=== PATIENT | male | born 1975 | race Caucasian/White ===

== ENCOUNTER 2019-07-02 13:57 | Emergency (ER) | payer BC ==
[2019-07-02] MEDS ORDERED: NA CHLORIDE 0.9% 1,000 ML ONE (15:14)
[2019-07-02 15:25] LABS: Absolute Lymphocytes (CBC) 0.9 K/uL (0.7-4.9); Basophils % 0.7 % (0-1.3); Hematocrit 42.2 % (39.6-49.0); Lymphocytes % 21.4 % (15.3-44.8); MPV 9.6 fL (7.6-11.3); RBC Red Blood Cell Count 4.84 M/uL (4.33-5.43)
[2019-07-02 15:30] LABS: Protime INR 1.15; Urine Blood NEGATIVE (NEG); Urine Glucose NEGATIVE (NEG); Urine Protein NEGATIVE (NEG); Urine Specific Gravity 1.025 (1.005-1.030); Urine pH 5.5 (5.0-7.0)
[2019-07-02 15:30] LABS: Urine Bacteria <20 /HPF (NONE SEEN); Urine Culture Reflex Order NOT NEEDED; Urine Mucus 1+ /HPF (NONE SEEN); Urine RBC <5 /HPF (NONE SEEN)
[2019-07-02 15:38] LABS: ALT/SGPT 103 U/L (12-78); AST/SGOT 69 U/L (15-37); Albumin 3.7 g/dL (3.4-5.0); Alkaline Phosphatase 113 U/L (45-117); BUN Blood Urea Nitrogen 24 mg/dL (7-18); Bicarbonate 28 mmol/L (21-32); Bilirubin Direct 0.1 mg/dL (0-0.2); Bilirubin Total 0.5 mg/dL (0.2-1.0); CKMB Creatine Kinase MB < 1.0 ng/mL (0.3-3.6); Creatine Phosphokinase 105 U/L (39-308); Glucose Level 99 mg/dL (74-106); Lipase 46 U/L (73-393); Potassium 4.3 mmol/L (3.5-5.1); Protein, Total 8.6 g/dL (6.4-8.2); Sodium Level 134 mmol/L (136-145); Troponin (Emerg Dept Use Only) < 0.02 ng/mL (0.0-0.045)
[2019-07-02] MEDS ORDERED: ONDANSETRON 4 MG/2 ML VIAL ONE (16:11)
[2019-07-02] MEDS ORDERED: MORPHINE 4 MG/ML SYR ONE ×2 (16:11→18:06)
--- NOTE | 2019-07-02 16:20 | RAD REPORT ---
EXAM DESCRIPTION: CT - Chest Angio - 07/02/2019 4:05 pm CLINICAL HISTORY: Shortness of breath COMPARISON: None. TECHNIQUE: Dynamically enhanced axial 3 mm thick images of the chest were obtained during administra tion of <100> mL Isovue 370 IV contrast. Coronal and oblique reconstruction images were generated and reviewed. Exam utilizes a protocol for optimal evaluation of pulmonary arterial tree. 3D MIPS recons truction performed All CT scans are performed using dose optimization technique as appropriate and may include automated exposure control or mA/KV adjustment according to patient size. FINDINGS: The opacification of the pulmonary arteries is suboptimal. A pulmonary embolus is not seen . The ascending thoracic aorta is ectatic measuring 3.9 centimeters. A pleural effusion is not seen. A pericardial effusion is not noted. A lung consolidation is not present. Paraseptal emphysema is present. Fatty liver IMPRESSION: Negative for a pulmonary embolism.
--- NOTE | 2019-07-02 16:27 | RAD REPORT ---
EXAM DESCRIPTION: CTSpine Lumbar W/Cont07/02/2019 4:04 pm CLINICAL HISTORY: Back pain and radiculopathy COMPARISON: None TECHNIQUE: Computed axial tomography lumbar spine was obtained with coronal and sagittal reconstruct ion. Isovue 370 is administered intravenously All CT scans are performed using dose optimization technique as appropriate and may include automated exposure control or mA/KV adjustment according to patient size. FINDINGS: Left camilo laminectomy involves L4-5. Large left posterolateral structure is present. Ill-d efined fluid is present within the posterior subcutaneous tissues. Small right posterolateral disc bulge/ herniation L5-S1 No fracture is seen. IMPRESSION: Left hemilaminectomy L4-5. Large left posterolateral structure L4-5 may represent disc herniation, inflammatory tissue status po st recent surgery or combination of both An epidural abscess is not visualized Ill-defined nonspecific fluid posterior subcutaneous tissues L4-5 If the patient's symptoms persist an enhanced MRI would helpful for further evaluation.
--- NOTE | 2019-07-02 16:30 | RAD REPORT ---
EXAM DESCRIPTION: Marie Single View07/02/2019 3:15 pm CLINICAL HISTORY: sob COMPARISON: 2014 FINDINGS: The lungs appear clear of acute infiltrate. The heart is normal size IMPRESSION: No acute abnormalities displayed
[2019-07-02] MEDS ORDERED: dexAMETHasone 10 MG/ML VIAL ONE (16:44)
--- NOTE | 2019-07-02 18:05 | EDPHYS ---
Physician Documentation [facility] Name: Tin Nicolas Age: 44 yrs Sex: Male : 1975 Arrival Date: 07/02/2019 Time: 14:01 Bed 30 Private MD: ED Physician Jonathon Ramires HPI: 07/02 15:47 This 44 yrs old Male presents to ER via Ambulatory with complaints of Back jr8 Pain. 15:47 The patient presents with pain that is acute. The symptoms are located in the low back. jr8 Onset: The symptoms/episode began/occurred acutely, 1 week(s) ago. The pain does not radiate. Associated signs and symptoms: The patient has no apparent associated signs or symptoms. Modifying factors: The patient symptoms are alleviated by nothing, the patient symptoms are aggravated by any movement. Severity of symptoms: At their worst the symptoms were moderate, in the emergency department the symptoms are unchanged. The patient has not experienced similar symptoms in the past. The patient has not recently seen a physician. 15:49 Patient stated that he had surgery about 3 weeks ago on low back. Stated that about a jr8 week ago started to have low back pain that is progressively getting worse. Denies any other symptoms . Historical: - Allergies: 14:32 Keflex; hb - Immunization history:: Adult Immunizations up to date. - Social history:: Smoking status: Patient/guardian denies using tobacco. - Ebola Screening: : No symptoms or risks identified at this time. ROS: 15:57 Eyes: Negative for injury, pain, redness, and discharge, ENT: Negative for injury, jr8 pain, and discharge, Neck: Negative for injury, pain, and swelling, Cardiovascular: Negative for chest pain, palpitations, and edema, Respiratory: Negative for shortness of breath, cough, wheezing, and pleuritic chest pain, Abdomen/GI: Negative for abdominal pain, nausea, vomiting, diarrhea, and constipation, MS/Extremity: Negative for injury and deformity, Skin: Negative for injury, rash, and discoloration, Neuro: Negative for headache, weakness, numbness, tingling, and seizure. 15:57 Back: Positive for pain at rest, pain with movement, Negative for radiated pain. Exam: 15:57 Eyes: Pupils equal round and reactive to light, extra-ocular motions intact. Lids and jr8 lashes normal. Conjunctiva and sclera are non-icteric and not injected. Cornea within normal limits. Periorbital areas with no swelling, redness, or edema. ENT: Nares patent. No nasal discharge, no septal abnormalities noted. Tympanic membranes are normal and external auditory canals are clear. Oropharynx with no redness, swelling, or masses, exudates, or evidence of obstruction, uvula midline. Mucous membranes moist. Neck: Trachea midline, no thyromegaly or masses palpated, and no cervical lymphadenopathy. Supple, full range of motion without nuchal rigidity, or vertebral point tenderness. No Meningismus. Respiratory: Lungs have equal breath sounds bilaterally, clear to auscultation and percussion. No rales, rhonchi or wheezes noted. No increased work of breathing, no retractions or nasal flaring. Abdomen/GI: Soft, non-tender, with normal bowel sounds. No distension or tympany. No guarding or rebound. No evidence of tenderness throughout. Skin: Warm, dry with normal turgor. Normal color with no rashes, no lesions, and no evidence of cellulitis. MS/ Extremity: Pulses equal, no cyanosis. Neurovascular intact. Full, normal range of motion. Neuro: Awake and alert, GCS 15, oriented to person, place, time, and situation. Cranial nerves II-XII grossly intact. Motor strength 5/5 in all extremities. Sensory grossly intact. Cerebellar exam normal. Normal gait. 15:57 Cardiovascular: Rate: tachycardic, Rhythm: regular, Pulses: Pulses are 2+ in right radial artery, right femoral artery, left radial artery and left femoral artery. Heart sounds: normal, normal S1and S2, no S3 or S4, no murmur, no rub, no gallop, Edema: is not appreciated, JVD: is not appreciated. 15:57 Back: pain, that is mild, of the lumbar area, ROM is painful, normal spinal alignment noted, CVA tenderness, is absent, vertebral tenderness, is not appreciated. Vital Signs: 14:29 BP 146 / 105; Pulse 145; Resp 20; Temp 98.7(O); Pulse Ox 100% on R/A; Weight 108.86 kg; hb Height 5 ft. 11 in. (180.34 cm); Pain 10/10; 16:28 BP 133 / 91; Pulse 106; Resp 16; Pulse Ox 96% on R/A; tr5 14:29 Body Mass Index 33.47 (108.86 kg, 180.34 cm) hb MDM: 14:34 Patient medically screened. jr8 17:48 Data reviewed: vital signs, nurses notes, lab test result(s), radiologic studies, CT jr8 scan. Data interpreted: Pulse oximetry: on room air is 96 %. Interpretation: normal. Counseling: I had a detailed discussion with the patient and/or guardian regarding: the historical points, exam findings, and any diagnostic results supporting the discharge/admit diagnosis, lab results, radiology results, the need for outpatient follow up, a neurosurgeon, to return to the emergency department if symptoms worsen or persist or if there are any questions or concerns that arise at home. Response to treatment: the patient's symptoms have markedly improved after treatment, patient is well hydrated. ED course: Patients HR now normal after fluids and pain management. No indication with blood work or CT to show infection. No PE. Patient feeling better. Most likely continued herniation vs inflammation. Will f/u with surgeon. If worse will come back . 07/02 14:44 Order name: D-Dimer [facility] 07/02 14:44 Order name: Basic Metabolic Panel; Complete Time: 15:42 [facility] 07/02 14:44 Order name: Blood Culture Adult (2) [facility] 07/02 14:44 Order name: CBC with Diff; Complete Time: 15:39 [facility] 07/02 14:44 Order name: Ckmb; Complete Time: 15:42 [facility] 07/02 14:44 Order name: CPK; Complete Time: 15:42 07/02 14:44 Order name: Lactate; Complete Time: 15:39 07/02 14:44 Order name: LFT's; Complete Time: 15:42 [facility] 07/02 14:44 Order name: Lipase; Complete Time: 15:42 [facility] 07/02 14:44 Order name: Procalcitonin; Complete Time: 16:07 [facility] 07/02 14:44 Order name: Protime (+inr); Complete Time: 15:56 [facility] 07/02 14:44 Order name: Ptt, Activated; Complete Time: 15:56 [facility] 07/02 14:44 Order name: Troponin (emerg Dept Use Only); Complete Time: 15:42 [facility] 07/02 14:44 Order name: Urine Microscopic Only; Complete Time: 15:39 [facility] 07/02 14:44 Order name: Chest Single View XRAY; Complete Time: 16:33 [facility] 07/02 14:44 Order name: Accucheck; Complete Time: 15:47 07/02 14:44 Order name: Cardiac monitoring; Complete Time: 15:11 [facility] 07/02 14:44 Order name: EKG - Nurse/Tech; Complete Time: 15:47 [facility] 07/02 14:44 Order name: IV Saline Lock - Large Bore; Complete Time: 15:11 [facility] 07/02 14:45 Order name: D-Dimer; Complete Time: 15:56 EDMS 07/02 15:00 Order name: Urine Dipstick--Ancillary (enter results); Complete Time: 15:39 07/02 15:43 Order name: Spine Lumbar W/Cont; Complete Time: 16:30 EDMS 07/02 15:56 Order name: CT Chest Angio; Complete Time: 16:26 [facility] 07/02 15:57 Order name: Glucose, Ancillary Testing; Complete Time: 15:58 EDMS 07/02 17:30 Order name: EKG Electrocardiogram; Complete Time: 18:05 EDMS 07/02 14:44 Order name: Labs collected and sent; Complete Time: 15:11 [facility] 07/02 14:44 Order name: O2 Per Protocol; Complete Time: 15:11 [facility] 07/02 14:44 Order name: O2 Sat Monitoring; Complete Time: 15:11 [facility] 07/02 14:44 Order name: Urine Dipstick-Ancillary (obtain specimen); Complete Time: 15:11 [facility] Administered Medications: 15:11 Drug: NS 0.9% 1000 ml Route: IV; Rate: 1000 ml; Site: right antecubital; tr5 16:00 Drug: morphine 4 mg {Note: RASS:0.} Route: IVP; Site: right antecubital; tr5 17:00 Follow up: Response: Pain is decreased; RASS: Alert and Calm (0) tr5 16:00 Drug: Zofran 4 mg Route: IVP; Site: right antecubital; tr5 17:00 Follow up: Response: Marked relief of symptoms tr5 16:50 Drug: Decadron - Dexamethasone 10 mg Route: IVP; Site: left antecubital; tr5 18:32 Follow up: Response: Marked relief of symptoms tr5 18:13 Drug: morphine 4 mg {Note: RASS:0.} Route: IVP; Site: right antecubital; tr5 18:32 Follow up: Response: Pain is decreased; RASS: Alert and Calm (0) tr5 Disposition: 07/02/19 18:04 Discharged to Home. Impression: Low back pain. - Condition is Stable. - Discharge Instructions: Lumbar Laminectomy, Care After. - Prescriptions for Prednisone 20 mg Oral Tablet - take 1 tablet by ORAL route once daily for 5 days; 5 tablet. - Work release form, Medication Reconciliation Form, Thank You Letter, Antibiotic Education, Prescription Opioid Use form. - Follow up: Private Physician; When: 1 - 2 days; Reason: Recheck today's complaints, Continuance of care, Re-evaluation by your physician. - Problem is new. - Symptoms have improved. - Notes: Push fluids Continue to rest Continue other home medications at this time Signatures: Dispatcher [employer] EDFL Trever Luque PA PA jr8 Griselda Mary, RN RN Marty Craft RN RN tr5 Corrections: (The following items were deleted from the chart) 18:37 18:04 07/02/2019 18:04 Discharged to Home. Impression: Low back pain. Condition is tr5 Stable. Forms are Medication Reconciliation Form, Thank You Letter, Antibiotic Education, Prescription Opioid Use. Follow up: Private Physician; When: 1 - 2 days; Reason: Recheck today's complaints, Continuance of care, Re-evaluation by your physician. Problem is new. Symptoms have improved. jr8
--- NOTE | 2019-07-02 18:05 | ER ---
Nurse's Notes [facility] Name: Tin Nicolas Age: 44 yrs Sex: Male : 1975 Arrival Date: 07/02/2019 Time: 14:01 Bed 30 Private MD: Diagnosis: Low back pain Presentation: 07/02 14:30 Presenting complaint: Low back pain that radiates to upper back x 1 week. Pt is 3 weeks hb s/p back surgery. Transition of care: patient was not received from another setting of care. Onset of symptoms was July 02, 2019. Risk Assessment: Do you want to hurt yourself or someone else? Patient reports no desire to harm self or others. Care prior to arrival: Medication(s) given: [place] and Flexeril at 1200 today. 14:30 Method Of Arrival: Ambulatory hb 14:30 Acuity: SAUL 2 hb 14:30 Initial Sepsis Screen: Does the patient meet any 2 criteria? No. Patient's initial tr5 sepsis screen is negative. Does the patient have a suspected source of infection? No. Patient's initial sepsis screen is negative. Historical: - Allergies: 14:32 Keflex; hb - Immunization history:: Adult Immunizations up to date. - Social history:: Smoking status: Patient/guardian denies using tobacco. - Ebola Screening: : No symptoms or risks identified at this time. Screenin:46 Abuse screen: Denies threats or abuse. Nutritional screening: No deficits noted. tr5 Tuberculosis screening: No symptoms or risk factors identified. Fall Risk None identified. Assessment: 14:46 General: Appears uncomfortable, Behavior is calm, cooperative, appropriate for age. tr5 Pain: Complains of pain in back. Neuro: Level of Consciousness is awake, alert, obeys commands, Oriented to person, place, time, Precision Assembler are equal bilaterally Moves all extremities. Respiratory: Airway is patent Respiratory effort is even, unlabored, Respiratory pattern is regular, symmetrical. GI: No signs and/or symptoms were reported involving the gastrointestinal system. : No signs and/or symptoms were reported regarding the genitourinary system. EENT: No signs and/or symptoms were reported regarding the EENT system. Derm: No signs and/or symptoms reported regarding the dermatologic system. Musculoskeletal: Reports pain in back. Vital Signs: 14:29 BP 146 / 105; Pulse 145; Resp 20; Temp 98.7(O); Pulse Ox 100% on R/A; Weight 108.86 kg; hb Height 5 ft. 11 in. (180.34 cm); Pain 10/10; 16:28 BP 133 / 91; Pulse 106; Resp 16; Pulse Ox 96% on R/A; tr5 14:29 Body Mass Index 33.47 (108.86 kg, 180.34 cm) hb ED Course: 14:01 Patient arrived in ED. mr 14:30 Arm band placed on. hb 14:31 Triage completed. hb 14:34 Trever Luque [facility]. jr8 14:34 Jonathon aRmires MD is Attending Physician. jr8 14:46 Bed in low position. Call light in reach. Side rails up X 1. Adult w/ patient. Cardiac tr5 monitor on. Pulse ox on. NIBP on. 15:00 First set of blood cultures drawn. Inserted saline lock: 20 gauge in right antecubital tr5 area, using aseptic technique. 15:10 Marty Craft, RN is Primary Nurse. tr5 15:11 Chest Single View XRAY Sent. tr5 15:17 Chest Single View XRAY In Process Unspecified. EDMS 15:22 EKG done, by registered pharmacy technician. reviewed by Trever MOSES. sm3 15:35 Second set of blood cultures drawn. tr5 16:05 Spine Lumbar W/Cont In Process Unspecified. EDMS 16:05 CT Chest Angio In Process Unspecified. EDMS 18:35 No provider procedures requiring assistance completed. IV discontinued. tr5 Administered Medications: 15:11 Drug: NS 0.9% 1000 ml Route: IV; Rate: 1000 ml; Site: right antecubital; tr5 16:00 Drug: morphine 4 mg {Note: RASS:0.} Route: IVP; Site: right antecubital; tr5 17:00 Follow up: Response: Pain is decreased; RASS: Alert and Calm (0) tr5 16:00 Drug: Zofran 4 mg Route: IVP; Site: right antecubital; tr5 17:00 Follow up: Response: Marked relief of symptoms tr5 16:50 Drug: Decadron - Dexamethasone 10 mg Route: IVP; Site: left antecubital; tr5 18:32 Follow up: Response: Marked relief of symptoms tr5 18:13 Drug: morphine 4 mg {Note: RASS:0.} Route: IVP; Site: right antecubital; tr5 18:32 Follow up: Response: Pain is decreased; RASS: Alert and Calm (0) tr5 Outcome: 18:04 Discharge ordered by MD. sarmiento 18:35 Discharged to home ambulatory. tr5 18:35 Condition: stable 18:35 Discharge instructions given to patient, family, Instructed on discharge instructions, follow up and referral plans. medication usage, Demonstrated understanding of instructions, follow-up care, medications, Prescriptions given X 1. 18:37 Patient left the ED. tr5 Signatures: Dispatcher [employer] EDND Sergio Savi Wendyblancheazam, AURELIA Perera jr8 Griselda Mary RN RN hb Montes, Shakira 3 Marty Craft RN RN tr5
[2019-07-02 19:37] VITALS: TEMP 98.1; O2SAT 97
[2019-07-02 19:39] VITALS: BP 133/84
--- NOTE | 2019-07-03 08:19 | EKG ---
Test Date: 2019-07-02 Test Time: 15:12:45 Jump Roll Operator: SHAHID MEASUREMENT RESULTS: Intervals: Rate: 107 WV: 134 QRSD: 76 QT: 312 QTc: 416 Hinkley: P: 23 WV: 134 QRS: 13 T: 5 INTERPRETIVE STATEMENTS: Sinus tachycardia Otherwise normal ECG No previous ECG available for comparison Electronically Signed On 07-03-19 08:16:13 MOTOR VEHICLES SUPERVISOR by [employer] Gongora
== END 2019-07-02 18:37 | disposition home or self-care (01) ==
LOC: ER 13:57
DX: M54.5 Low back pain (principal); Z88.8 Allergy status to other drugs, medicaments and biological substances
CPT/HCPCS: 93005; 87040 ×2; 85025; 80048; 36415; 82550; 85610; 82947; 85379; 80076; 83605; 85730; 84484; 82553; 83690; 84145; 72132; 71275; 71045; Q9967; J1100; J7030; J2405; 81003; 81015; 99284